=== PATIENT | female | born 1995 | race Caucasian/White ===

== ENCOUNTER → 2018-09-24 | Outpatient (CLI) | payer OTHER ==
[~2018-09-24] MED LIST: NO HOME MEDICATIONS
== END ==
LOC: COL.RAD 07:17
DX: N30.21 Other chronic cystitis with hematuria (principal)

== ENCOUNTER → 2021-04-05 | Outpatient (CLI) | payer BC | LOC: COL.RAD 03-26 09:45 | DX: R10.10 Upper abdominal pain, unspecified (principal); R11.0 Nausea ==

== ENCOUNTER → 2021-04-26 | Outpatient (CLI) | payer BC | LOC: COL.RAD 06:32 | DX: R10.10 Upper abdominal pain, unspecified (principal); R11.0 Nausea | CPT/HCPCS: A9537; J2805 ==